=== PATIENT | male | born 1990 | race Caucasian/White ===

== ENCOUNTER 2016-10-23 14:50 | Emergency (ER) | payer BC, OTHER ==
[~2016-10-23] VITALS: Ht 185.4 cm; Wt 79.7 kg
[~2016-10-23 14:50] MED LIST: MTRUNK PO; PRCUNK PO
[2016-10-23 14:56] VITALS: TEMP 37.1; Ht 185.4 cm; Wt 79.7 kg
[2016-10-23] MEDS ORDERED: XYLOCAINE 1%/SOD BICARB 20 ML VIAL INFIL ONE (15:18)
--- NOTE | 2016-10-23 15:23 | EMERGENCY ROOM VISIT NOTE ---
ED Visit Note First contact with patient: 15:04 CHIEF COMPLAINT: Finger laceration HISTORY OF PRESENT ILLNESS: This 26-year-old male patient presents to the emergency department ambulatory after cutting the left third finger while using a knife just prior to arrival. The bleeding has not stopped. Denies weakness or numbness of the finger. The patient has full range of motion of the fingers. The patient rates the pain as sharp and 6/10. The patient denies any other injuries. The patient's tetanus shot is up to date. REVIEW OF SYSTEMS: A 6 system review of systems was completed with positives and pertinent negatives listed in the HPI. ALLERGIES: No known drug allergies MEDICATIONS: No chronic medications PMH: No significant past medical history. SOCIAL HISTORY: The patient lives locally with family. PHYSICAL EXAM: Vital Signs: Reviewed Nurse's notes, vital signs stable. GENERAL : This is a 26-year-old male, in no acute distress, well developed, well nourished. SKIN: There is a 1.5 cm long laceration on the lateral aspect of the left third finger. The edges gape apart with traction. There is no foreign material in the wound and it looks clean. There is no active bleeding. No deep structures such as tendons, bones, or significant blood vessels are seen in the base of the wound. Extension and flexion of the finger is full and strong. Full range of motion of the wrist and other fingers. Capillary refill less than 2 seconds. Normal sensation to light and sharp touch. EMERGENCY DEPARTMENT COURSE: I examined the patient. Verbal consent was obtained to perform the procedure. Using sterile technique the wound was cleansed with Betadine. Local anesthesia was achieved using 2 mL of 1% buffered lidocaine. The area was sterilely draped. Once the patient was anesthetized, the wound was copiously irrigated under pressure with sterile saline. The wound was explored and there were no deep structures injured. The laceration was repaired using 6 simple interrupted 5-0 nylon sutures. The patient tolerated the procedure well. Hemostasis was achieved. The area was cleaned with sterile saline and dressed with bacitracin ointment and bandage. The patient was discharged home in good condition. DIAGNOSIS: Finger laceration Current/Historical Medications No Active Prescriptions or Reported Meds Allergies Coded Allergies: No Known Allergies (Verified Allergy, Mild, 05/19/09) Vital Signs Date Time Temp Pulse Resp B/P Pulse Ox O2 Delivery O2 Flow Rate FiO2 10/23/16 16:06 74 12 126/78 97 10/23/16 14:56 37.1 102 20 133/80 96 Room Air Departure Information Impression Primary Impression: Finger laceration Dispostion Home / Self-Care Condition GOOD Prescriptions No Active Prescriptions or Reported Meds Referrals No Doctor, Assigned (PCP) Patient Instructions My [facility] Additional Instructions You have received 6 sutures on your finger. These sutures are NOT dissolvable and WILL need to be removed by a health care provider in 8-10 days. You can return to the Emergency Department or contact your Primary Care Provider to have the sutures removed. Proper wound care is essential for adequate wound healing and infection prevention. You can shower and clean the wound with soap and water. Do not scour over the wound, pat dry with a towel. Do not submerse the wound (i.e. bathe or dish wash) until the sutures have been removed. You can use an antibiotic ointment with a dressing over the wound for the next 3-4 days. After this time you may leave the wound dry and open to the air. If crust develops over the wound you can use a Q-tip to apply a 1:1 peroxide:water solution to clean the wound. Look for signs of infection of the wound including: increased pain, swelling, foul discharge, streaking, or increased temperature. If any of these are noticed you should return to the Emergency Department for further assessment and treatment. As with any laceration you may have received nerve damage to the surrounding tissues. This damage may or may not be permanent. You should keep the area covered with sunscreen for the first 6 months to 1 year when at risk for exposure to help minimize scarring. You can also use scar reducing creams or Vitamin E oil to help minimize scarring. For pain control, you can use the following [id number] medicines (if >12 yo): - Regular strength (325mg/tab) Tylenol (acetaminophen) 2 tabs every 4-6 hours as needed. Do not exceed 12 tablets in a 24 hour period. Avoid taking more than 4 grams (4000 mg) of Tylenol per day. This includes any other sources of acetaminophen you may take on a regular basis. - Regular strength (200 mg/tab) Advil (ibuprofen) 1-2 tabs every 4-6 hours as needed. Do not exceed a dose of 3200 mg per day. Return to the emergency department if your symptoms worsen despite treatment course outlined above.
[2016-10-23 16:06] VITALS: BP 126/78; PULSE 74; O2SAT 97
== END 2016-10-23 16:07 | disposition home or self-care (01) ==
LOC: C.EDB 14:52 → C.EDD 16:07
DX: S61.213A Laceration without foreign body of left middle finger without damage to nail, initial encounter (principal); W26.0XXA Contact with knife, initial encounter

== ENCOUNTER 2016-12-20 01:29 | Emergency (ER) | payer OTHER ==
[~2016-12-20] VITALS: Ht 185.4 cm; Wt 77.5 kg
[2016-12-20 01:30] VITALS: TEMP 36.6; Ht 185.4 cm; Wt 77.5 kg
[2016-12-20 01:57] LABS: BASO % 0.2 %; BASO ABS # 0.01 K/uL (0-0.2); COMPLETE YES; EOS % 1.1 %; HEMATOCRIT 43.4 % (42-52); IG% 0.2 %; LYMPH % 43.1 %; LYMPH ABS # 2.67 K/uL (1.2-3.4); MEAN CELL VOLUME 92.5 fL (80-100); MEAN CORPUSCULAR HEMOGLOBIN 33.5 pg (25-34); MEAN CORPUSCULAR HGB CONC 36.2 g/dl (32-36); MEAN PLATELET VOLUME 9.2 fL (7.4-10.4); MONO % 11.3 %; NEUT % 44.1 %; PLATELET COUNT 228 K/uL (130-400); RED BLOOD COUNT 4.69 M/uL (4.7-6.1); WHITE BLOOD COUNT 6.19 K/uL (4.8-10.8)
[2016-12-20 02:15] LABS: BUN/CREATININE RATIO 13.5 (10-20); CALCIUM 8.7 mg/dl (8.5-10.1); CREATININE 1.2 mg/dl (0.60-1.40); POTASSIUM 3.3 mmol/L (3.5-5.1)
[2016-12-20] MEDS ORDERED: POTASSIUM CHLORIDE 10 MEQ TABCR PO STA (03:38)
[2016-12-20 04:32] LABS: BENZODIAZEPINE, URINE NEG (NEG); COCAINE,URINE NEG (NEG); PHENCYCLIDINE, URINE NEG (NEG)
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
[2016-12-20 04:48] VITALS: BP 148/58; PULSE 85; O2SAT 96
== END 2016-12-20 04:49 | disposition home or self-care (01) ==
LOC: EDBD 01:29 → C.EDA 01:30
DX: T40.1X1A Poisoning by heroin, accidental (unintentional), initial encounter (principal); E87.6 Hypokalemia; F17.200 Nicotine dependence, unspecified, uncomplicated

== ENCOUNTER → 2016-12-20 | Outpatient (CLI) | payer OTHER ==
[~2016-12-20] MED LIST changes: +BUPR1SUB23 PO; +CEPH500C PO; -MTRUNK PO; -PRCUNK PO
== END | disposition home or self-care (01) ==
LOC: C.LAB 01:32
DX: Z02.83 Encounter for blood-alcohol and blood-drug test (principal)

== ENCOUNTER 2017-01-15 21:05 | Emergency (ER) | payer OTHER ==
[~2017-01-15] VITALS: Ht 185.4 cm; Wt 72.8 kg
[2017-01-15 21:26] VITALS: TEMP 37.1; Ht 185.4 cm; Wt 72.8 kg
[2017-01-15] MEDS ORDERED: ACETAMINOPHEN 500 MG TAB PO STA (21:50)
--- NOTE | 2017-01-15 22:16 | DIAGNOSTIC IMAGING REPORT ---
HEAD CT NONCONTRAST CT DOSE: 537.48 mGy.cm HISTORY: Headache. TECHNIQUE: Multiaxial CT images of the head were performed without the use of intravenous contrast. Automated exposure control was utilized for this study. Comparison: Head CT 05/18/2009. Findings: A 7 mm retention cysts within the right max a sinus. The mastoid air cells are clear. The calvarium and skull base are intact. The ventricles and sulci are within normal limits. There is no mass, hematoma, midline shift, or acute infarct. Impression: No acute intracranial abnormality. Electronically signed by: Rojelio Yoon M.D. 01/15/2017 10:14 PM Dictated Date/Time: 01/15/2017 10:08 PM
--- NOTE | 2017-01-15 22:52 | DIAGNOSTIC IMAGING REPORT ---
TESTICULAR ULTRASOUND HISTORY: LEFT pelvic pain/lump COMPARISON: None. FINDINGS: Right testis: 5.0 x 3.0 x 2.7 cm. There are no intratesticular masses. Normal color flow. Trace hydrocele. The epididymis is unremarkable. There is a 6 mm right-sided scrotal stone. Left testis: 4.6 x 2.7 x 2.7 cm. There are no intratesticular masses. Normal color flow. No hydrocele. The epididymis is unremarkable. Hypoechoic and slightly thickened appearance to the distal left inguinal canal. IMPRESSION: 1. Normal bilateral testes. 2. A 6 mm right-sided scrotal stone. 3. Trace right-sided hydrocele. 4. Hypoechoic and slightly thickened appearance of the distal left inguinal canal which is nonspecific. This could represent a tiny fat-containing left inguinal hernia versus mild thickening of the spermatic cord. Electronically signed by: Rojelio Yoon M.D. 01/15/2017 10:50 PM Dictated Date/Time: 01/15/2017 10:46 PM
--- NOTE | 2017-01-15 23:03 | DIAGNOSTIC IMAGING REPORT ---
PELVIS ONE VIEW HISTORY: LEFT groin pain COMPARISON: None. FINDINGS: There is no fracture or dislocation. Soft tissues are unremarkable. No radiopaque foreign bodies. IMPRESSION: No fracture or dislocation within the pelvis or hips. Electronically signed by: Rojelio Yoon M.D. 01/15/2017 11:01 PM Dictated Date/Time: 01/15/2017 10:59 PM
--- NOTE | 2017-01-15 23:10 | EMERGENCY ROOM VISIT NOTE ---
History First contact with patient: 21:35 Chief Complaint: OTHER COMPLAINT Stated Complaint: PELVIC PAIN History of Present Illness The patient is a 26 year old male who presents to the Emergency Department via EMS for evaluation after being found down town sleeping [place] stoop [place] the [place]. The patient reports a long-standing history of heroin and meth use. Today he had used approximately 5 bags of heroin and had used meth as well. He injects intravenously. He did not lose consciousness throughout today. He was dropped off in town by an acquaintance earlier today. He did not feel like going home and reports the typically stays at friend's houses. Instead, he elected to lay down on the stoop of a latter-day. He reports that he apparently fell asleep, because he awoke and it was dark out. He was approached by students who were concerned with him laying there. They contacted EMS as well as his mother. He initially declined EMS, but felt that maybe he should be evaluated as he was having concern for ongoing LEFT inguinal swelling. He reports that his symptoms started abruptly after sex several months ago. He denies any significant pain to the area, but wishes to be evaluated as he is concerned for hernia. The patient rates his current discomfort as a 0/10. He denies any suicidal or homicidal ideation. He reports that he had she has appointment with the methadone clinic on Saturday with whom he is to help before. He wishes to get clean, but wishes to do so on his own. He denies any fevers , chills, nausea, vomiting, neck pain, chest pain, abdominal pain, testicular pain, or penile discharge/drainage. He does complain of a headache, but is uncertain if this is typical or not as he typically uses heroin throughout the day for any other pain. Review of Systems A complete 10-point Review of Systems was discussed with the patient, with pertinent positives and negatives listed in the History of Present Illness. All remaining Review of Systems questions can be considered negative unless otherwise specified. Social History Smoking Status: Current Every Day Smoker Drug Use: heroin, other Marital Status: single Housing Status: other Current/Historical Medications No Active Prescriptions or Reported Meds Allergies Coded Allergies: No Known Allergies (Verified , 12/20/16) Physical Exam Vital Signs Date Time Temp Pulse Resp B/P Pulse Ox O2 Delivery O2 Flow Rate FiO2 01/15/17 23:17 87 18 150/88 97 01/15/17 21:26 37.1 88 18 162/92 96 Room Air Pain Rating (0-10): 0 Physical Exam VITAL SIGNS - Vital signs and nursing notes were reviewed. GENERAL - 26-year-old male appearing hi stated age who is in no acute distress. Communicates well with provider and answers questions appropriately. SKIN - Without rashes. Tract moreira noted of the bilateral surfaces the arms. HEAD - NC/AT. EYES - PERRL with EOMI bilaterally. Sclera anicteric. Palpebral conjunctiva pink and moist with no injection noted. EARS - No deformities of external structures noted on gross examination bilaterally. No pain elicited with palpation of the tragus bilaterally. External auditory canals without discharge or otorrhea. Tympanic membranes pearly foss without retraction or bulging. No fluid or purulent material visualized behind the TM. Handle of malleus, umbo, cone of light, pars tensa/ flaccid all easily visualized. NOSE - Midline and without cyanosis. No epistaxis or purulent drainage noted. Septum midline without deviation or septal hematoma noted. MOUTH/OROPHARYNX - Without perioral cyanosis. Buccal mucosa pink and moist and without leukoplakia. Tongue midline with equal elevation of palate bilaterally. No tonsillar hypertrophy, erythema, or exudates noted. NECK - Neck with FROM. Supple to palpation. No lymphadenopathy noted. No nuchal rigidity. LUNGS - Chest wall symmetric without accessory muscle use, intercostals retractions, or central cyanosis. Normal vesicular breath sounds CTA B/L. No wheezes, rales, or rhonchi appreciated. CARDIAC - RRR with S1/S2. No murmur, rubs, or gallops appreciated. ABDOMEN - Abdominal contour flat without pulsations or visible masses. BS normoactive all four quadrants. No tenderness, palpable masses, hepatosplenomegaly, or ascites noted. GENITOURINARY - palpable lump noted in the LEFT inguinal area. No testicular tenderness to palpation or swelling. No erythema or the touch. No penile discharge or drainage. EXTREMITIES - No clubbing or peripheral cyanosis. No pretibial edema present. +3 /5 radial, posterior tibial, and dorsalis pedis pulses palpated throughout. +5/ 5 strength noted in UE/LE bilaterally. NEUROLOGIC - Cranial nerves II through XII grossly intact. Sensory intact to light touch throughout. Patellar reflexes +2/4. PSYCH - A&Ox3 and cooperates fully with examiner. Pt is very pleasant and interacts well with examiner. Medical Decision & Procedures ER Provider Diagnostic Interpretation: Radiological imaging and reports were reviewed by myself. Radiologist's Interpretation as follows: HEAD CT NONCONTRAST CT DOSE: 537.48 mGy.cm HISTORY: Headache. TECHNIQUE: Multiaxial CT images of the head were performed without the use of intravenous contrast. Automated exposure control was utilized for this study. Comparison: Head CT 05/18/2009. Findings: A 7 mm retention cysts within the right max a sinus. The mastoid air cells are clear. The calvarium and skull base are intact. The ventricles and sulci are within normal limits. There is no mass, hematoma, midline shift, or acute infarct. Impression: No acute intracranial abnormality. PELVIS ONE VIEW HISTORY: LEFT groin pain COMPARISON: None. FINDINGS: There is no fracture or dislocation. Soft tissues are unremarkable. No radiopaque foreign bodies. IMPRESSION: No fracture or dislocation within the pelvis or hips. TESTICULAR ULTRASOUND HISTORY: LEFT pelvic pain/lump COMPARISON: None. FINDINGS: Right testis: 5.0 x 3.0 x 2.7 cm. There are no intratesticular masses. Normal color flow. Trace hydrocele. The epididymis is unremarkable. There is a 6 mm right-sided scrotal stone. Left testis: 4.6 x 2.7 x 2.7 cm. There are no intratesticular masses. Normal color flow. No hydrocele. The epididymis is unremarkable. Hypoechoic and slightly thickened appearance to the distal left inguinal canal. IMPRESSION: 1. Normal bilateral testes. 2. A 6 mm right-sided scrotal stone. 3. Trace right-sided hydrocele. 4. Hypoechoic and slightly thickened appearance of the distal left inguinal canal which is nonspecific. This could represent a tiny fat-containing left inguinal hernia versus mild thickening of the spermatic cord. Medications Administered Medications (Trade) Dose Ordered Sig/[place] Route Start Time Stop Time Status Last Admin Dose Admin Acetaminophen (Tylenol Tab) 1,000 mg NOW STAT PO 01/15/17 21:50 01/15/17 21:53 DC 01/15/17 22:01 1,000 MG ED Course Patient was seen and evaluated by myself. CT of head as well as pelvic x-ray and inguinal ultrasound were obtained. I did discuss the patient with case management who evaluated the patient. He declines any services at this point and is currently seeking outpatient rehabilitation on his own. Imaging studies as above. Imaging results reviewed with the patient who acknowledges understanding. The patient was offered assistance with his wish to become clean. He declines at this point. He has appointment on Saturday with the methadone clinic. He will keep this appointment. The patient was educated on worrisome symptoms for return visit to the emergency department. Patient discharged home in good condition. Medical Decision Given the patient's presentation and stated complaints, I did elect to perform the above-mentioned workup. The patient was found downtown after sleeping. He reports to using drugs all day. He never apparently loss consciousness. He is alert and oriented throughout his entire stay in the emergency department. His neurological exam is completely unremarkable. He does have a palpable LEFT inguinal lump. This is consistent with an inguinal hernia. He has no fever. He has no request for any further intervention at this point. CT of his head was unremarkable. Pelvic x-ray is negative. He declines labs and does not wish to seek help at this point. He does have follow-up with which she was certain to keep. He was educated on worrisome symptoms for return visit to the emergency department. Patient discharged home in good condition. In the evaluation and treatment of this patient, the following differential diagnoses were considered: Substance overdose, multidrug abuse, head injury, intracranial injury, look injury, STI, vascular injury, amongst others. Impression Primary Impression: Left inguinal hernia Additional Impressions: Drug use Headache Departure Information Dispostion Home / Self-Care Condition GOOD Prescriptions No Active Prescriptions or Reported Meds Referrals No Doctor, Assigned (PCP) Patient Instructions My [facility] Additional Instructions You've been seen in the emergency department today and found to have an LEFT inguinal hernia. Please keep your play with the methadone clinic as scheduled. Return for any changing or worsening symptoms. Problem Qualifiers Additional Impressions: Headache Headache type: unspecified Headache chronicity pattern: unspecified pattern Intractability: not intractable Qualified Codes: R51 - Headache
[2017-01-15 23:17] VITALS: BP 150/88; PULSE 87; O2SAT 97
== END 2017-01-15 23:18 | disposition home or self-care (01) ==
LOC: EDBD 21:05 → C.EDA 21:06
DX: K40.90 Unilateral inguinal hernia, without obstruction or gangrene, not specified as recurrent (principal); F11.20 Opioid dependence, uncomplicated; F15.20 Other stimulant dependence, uncomplicated; R51 Headache; F17.200 Nicotine dependence, unspecified, uncomplicated

== ENCOUNTER 2017-04-21 10:50 | Emergency (ER) | payer OTHER ==
[~2017-04-21] VITALS: Ht 185.4 cm; Wt 70.0 kg
[2017-04-21 10:58] VITALS: TEMP 37; Ht 185.4 cm; Wt 70.0 kg
[2017-04-21] MEDS ORDERED: BUPR1SUB23 PO (11:09)
[2017-04-21] MEDS ORDERED: ACETAMINOPHEN 500 MG TAB PO STA (11:21)
[2017-04-21] MEDS ORDERED: LIDOCAINE/EPINEPH/TETRACAINE 1 EA SYR EXT STA (11:21)
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
[2017-04-21] MEDS ORDERED: CEPHALEXIN MONOHYDRATE 250 MG CAP PO ONE (13:00)
[2017-04-21] MEDS ORDERED: GI COCKTAIL PO STA (13:10)
[2017-04-21 13:12] VITALS: BP 131/72; PULSE 91; O2SAT 98
[2017-04-21] MEDS ORDERED: CEPH500C PO (13:13)
== END 2017-04-21 13:14 | disposition home or self-care (01) ==
LOC: C.EDB 10:53 → C.EDD 13:14
DX: S01.91XA Laceration without foreign body of unspecified part of head, initial encounter (principal); W22.8XXA Striking against or struck by other objects, initial encounter

== ENCOUNTER → 2017-05-18 | Outpatient (CLI) | payer OTHER ==
[~2017-05-18] MED LIST changes: -CEPH500C PO
== END | disposition home or self-care (01) ==
LOC: C.LAB 19:22
DX: Z02.83 Encounter for blood-alcohol and blood-drug test (principal)